=== PATIENT | male | born 1950 | race Hispanic/Latino ===

== ENCOUNTER 2021-09-04 09:50 | Observation (INO) | payer OTHER ==
[2021-09-02 10:18] LABS: APPEARANCE,URINE Clear (CLEAR); BILIRUBIN,URINE Negative (NEGATIVE); COLOR,URINE Yellow (YELLOW); GLUCOSE, URINE (UA) Negative (NEGATIVE); KETONES,URINE Negative (NEGATIVE); LEUKOCYTE ESTERASE ,URINE Trace (NEGATIVE); NITRATE,URINE Negative (NEGATIVE); OCCULT BLOOD,URINE Negative (NEGATIVE); PH,URINE 6.5 (5.0-8.0); PROTEIN,URINE Trace mg/dL (NEGATIVE); UROBILINOGEN,URINE 0.2 mg/dL (0.2-1.0)
[2021-09-02 10:22] LABS: BACTERIA,URINE Rare /HPF (None Seen); RBC,URINE 0-1 /HPF (0-1); SQUAMOUS EPITHELIAL CELL,UR Rare /HPF (0-2); WBC,URINE 0-1 /HPF (0-1)
[2021-09-02 10:24] LABS: BASOPHILS % (AUTO) 0.6 % (0.0-5.0); EOSINOPHILS % (AUTO) 1.7 % (0.0-8.0); HEMATOCRIT 46.3 % (42-54); LYMPHOCYTES % (AUTO) 25.2 % (21.0-51.0); MEAN CORPUSCULAR HEMOGLOBIN 30.5 pg (27.0-33.0); MEAN CORPUSCULAR HGB CONC 32.4 g/dL (32.0-36.0); MEAN CORPUSCULAR VOLUME 94.3 fL (79-99); MONOCYTES % (AUTO) 5.9 % (3.0-13.0); NEUTROPHILS % (AUTO) 66.1 % (40.0-77.0); PLATELET COUNT (AUTO) 132 K/uL (130-400); RED BLOOD CELL COUNT(AUTO) 4.91 MIL/uL (4.50-6.20); RED CELL DISTRIBUTION WIDTH 13.3 % (11.0-15.5); WHITE BLOOD COUNT (AUTO) 8.7 K/uL (4.8-10.8)
[2021-09-02 10:41] LABS: INR 0.97 (0.85-1.15); PROTHROMBIN TIME 10.6 SEC (9.6-11.6)
[2021-09-02 10:42] LABS: CREATININE 1.2 mg/dL (0.5-1.5); POTASSIUM 4.2 mmol/L (3.5-5.1)
[~2021-09-04] VITALS: Ht 172.7 cm; Wt 114.3 kg
[2021-09-04] VITALS (20 sets, daily range): BP systolic 110–173; BP diastolic 49–98
[~2021-09-04 09:50] MED LIST: ATOR20TA65 PO; BUDE10.2 IH; CLON0.5T4 PO; DILT120C12 PO; FISH1CAP27 PO; GLIP5TAB11 PO; LISI20TA24 PO; MELO10CA3 PO; MULT-1367 PO; TAMS-1 PO; THEO400T3 PO; TIOT18CA3 IH; TRAM-355 PO; VITA1CAP85 PO
[2021-09-04] MEDS: CEFAZOLIN SODIUM 1 GM VIAL IVP SCH ×4 (10:00→22:46)
[2021-09-04] MEDS ORDERED: 0.9%NACL 1000ML 1,000 ML IV ONE (10:39)
[2021-09-04] MEDS ORDERED: KETOROLAC 15MG/ML VIAL (15MG/ML) ONE (11:08)
[2021-09-04] MEDS ORDERED: CELECOXIB 200 MG CAP ONE (11:08)
[2021-09-04] MEDS ORDERED: ACETAMINOPHEN 500 MG TABLET ONE (11:08)
[2021-09-04] MEDS ORDERED: TRANEXAMIC ACID 1000MG/10ML ONE (11:39)
[2021-09-04] MEDS ORDERED: CEFAZOLIN SODIUM 1 GM VIAL ONE (11:39)
[2021-09-04] MEDS ORDERED: MIDAZOLAM HCL 1 MG/ML 2ML VIAL ONE (12:24)
[2021-09-04] MEDS ORDERED: ROCURONIUM 10MG/1ML SYR 10 MG/ML ML ONE ×2 (12:24→13:49)
[2021-09-04] MEDS ORDERED: PROPOFOL 10 MG/ML 20ML VIAL IV ONE (12:24)
[2021-09-04] MEDS ORDERED: LIDOCAINE PF 100MG/5ML (2%) SYRINGE 5ML ONE (12:24)
[2021-09-04] MEDS ORDERED: SUCCINYLCHOLINE CHLORIDE 20 MG/ML 10 ML VIAL ONE (12:24)
[2021-09-04] MEDS ORDERED: ALBUMIN (HUMAN) 5% 250 ML IV ONE (13:15)
[2021-09-04] MEDS ORDERED: GLYCOPYRROLATE 1 MG/5 ML SYRINGE ONE (13:35)
[2021-09-04] MEDS ORDERED: FENTANYL CITRATE PF 50 MCG/1 ML 2ML VIAL ONE (13:47)
[2021-09-04] MEDS ORDERED: CEFAZOLIN SODIUM 1 GM VIAL IRRIG ONE (13:55)
[2021-09-04] MEDS ORDERED: ALBUTEROL INHALER 90MCG/INH IH ONE (14:58)
[2021-09-04] MEDS ORDERED: ONDANSETRON 4MG INJ ONE (16:24)
[2021-09-04] MEDS ORDERED: NEOSTIGMINE 5MG/5ML SYR IV ONE (16:24)
[2021-09-04] MEDS ORDERED: POTASSIUM CHLORIDE 20MEQ/100ML 100 ML IV PRN (17:00)
[2021-09-04] MEDS ORDERED: LIDOCAINE HCL-MPF 1% 2ML VIAL IV PRN (17:00)
[2021-09-04] MEDS ORDERED: TRAMADOL HCL 50 MG TABLET PO PRN (17:00)
[2021-09-04] MEDS ORDERED: OXYCODONE HCL 5 MG TAB PO PRN (17:00)
[2021-09-04] MEDS ORDERED: DiphenhydrAMINE HCL 50 MG/ML VIAL IVP PRN (17:00)
[2021-09-04] MEDS ORDERED: POTASSIUM CHLORIDE 10% ELIXIR 20 MEQ/15 ML UDCUP PO PRN (17:00)
[2021-09-04] MEDS ORDERED: ONDANSETRON 4MG INJ IVP PRN (17:00)
[2021-09-04] MEDS ORDERED: FERROUS FUMARATE 324 MG TABLET PO PRN (17:00)
[2021-09-04] MEDS ORDERED: KCL 20 MEQ ERTAB PO PRN (17:00)
[2021-09-04] MEDS ORDERED: KETOROLAC 15MG/ML VIAL (15MG/ML) IV PRN (17:00)
[2021-09-04] MEDS ORDERED: CALCIUM CARB 500MG PO PRN (17:00)
[2021-09-04] MEDS ORDERED: MEPERIDINE-PF 25 MG/ML SYG ONE (17:49)
[2021-09-04] MEDS: ASPIRIN 81 MG EC TAB PO SCH (20:54)
[2021-09-04] MEDS: CELECOXIB 200 MG CAP PO SCH (20:54)
[2021-09-04] MEDS: FAMOTIDINE 20MG TAB PO SCH (20:55)
[2021-09-04] MEDS: PREGABALIN 25 MG CAP PO SCH (20:56)
[2021-09-04] MEDS: INSULIN HUMULIN R 100 UNIT/ML 3ML SQ SCH (21:00)
[2021-09-04] MEDS: ACETAMINOPHEN 500 MG TABLET PO SCH (21:01)
[2021-09-04] MEDS ORDERED: PROAIR IH PRN (22:00)
[2021-09-04] MEDS: CLONAZEPAM 0.5 MG TABLET PO SCH (22:46)
[2021-09-04] MEDS: LISINOPRIL 20 MG TABLET PO SCH (22:47)
[2021-09-04] MEDS: THEOPHYLLINE ANHYDROUS 100 MG CAP.ER.24H PO SCH (23:00)
[2021-09-05] VITALS (7 sets, daily range): BP systolic 119–149; BP diastolic 57–98
[2021-09-05 03:56] LABS: MEAN CORPUSCULAR HEMOGLOBIN 30.5 pg (27.0-33.0); MEAN CORPUSCULAR HGB CONC 32.1 g/dL (32.0-36.0); MEAN CORPUSCULAR VOLUME 94.8 fL (79-99); RED BLOOD CELL COUNT(AUTO) 3.48 MIL/uL (4.50-6.20); RED CELL DISTRIBUTION WIDTH 13.7 % (11.0-15.5); WHITE BLOOD COUNT (AUTO) 12.8 K/uL (4.8-10.8)
[2021-09-05 04:12] LABS: CREATININE 1.5 mg/dL (0.5-1.5); POTASSIUM 4.9 mmol/L (3.5-5.1)
[2021-09-05] MEDS: CEFAZOLIN SODIUM 1 GM VIAL IVP SCH (04:50)
[2021-09-05] MEDS: 0.9%NACL 1000ML 1,000 ML IV SCH ×2 (04:51→13:00)
[2021-09-05] MEDS: ACETAMINOPHEN 500 MG TABLET PO SCH ×3 (04:54→17:19)
[2021-09-05] MEDS: OXYCODONE HCL 5 MG TAB PO PRN ×2 (04:55→12:12)
[2021-09-05] MEDS: INSULIN HUMULIN R 100 UNIT/ML 3ML SQ SCH ×4 (07:30→21:00)
[2021-09-05] MEDS ORDERED: TAMSULOSIN HCL 0.4 MG CAP.ER.24H PO SCH (09:00)
[2021-09-05] MEDS ORDERED: NON-FORMULARY MEDICATION 1 EACH (Diltiazem HCl (Diltiazem ER) 120 MG) PO SCH (09:00)
[2021-09-05] MEDS: SPIRIVA IH SCH (09:00)
[2021-09-05] MEDS: SYMBICORT 160-4.5 MCG INHALER IH SCH ×2 (09:00→21:00)
[2021-09-05] MEDS: LISINOPRIL 20 MG TABLET PO SCH ×2 (10:11→22:14)
[2021-09-05] MEDS: ATORVASTATIN 20 MG TABLET PO SCH (10:11)
[2021-09-05] MEDS: PREGABALIN 25 MG CAP PO SCH ×2 (10:11→22:13)
[2021-09-05] MEDS: ASPIRIN 81 MG EC TAB PO SCH ×2 (10:11→22:13)
[2021-09-05] MEDS: GLIPIZIDE 5 MG TABLET PO SCH ×2 (10:12→17:09)
[2021-09-05] MEDS: FAMOTIDINE 20MG TAB PO SCH ×2 (10:12→22:14)
[2021-09-05] MEDS: DILTIAZEM 120MG SR CAP PO SCH (10:12)
[2021-09-05] MEDS: CELECOXIB 200 MG CAP PO SCH ×2 (10:12→22:13)
[2021-09-05] MEDS: TAMSULOSIN HCL 0.4 MG CAP.ER.24H PO SCH (10:13)
[2021-09-05] MEDS: POLYETHYLENE GLYCOL 3350 17 GM POWD.PACK PO SCH (10:13)
[2021-09-05] MEDS: CLONAZEPAM 0.5 MG TABLET PO SCH (22:13)
[2021-09-05] MEDS: THEOPHYLLINE ANHYDROUS 100 MG CAP.ER.24H PO SCH (22:14)
[2021-09-06 00:05] VITALS: BP 112/56
[2021-09-06 04:40] VITALS: BP 108/54
[2021-09-06] MEDS: ACETAMINOPHEN 500 MG TABLET PO SCH ×3 (05:07→20:34)
[2021-09-06] MEDS: OXYCODONE HCL 5 MG TAB PO PRN (05:08)
[2021-09-06] MEDS: INSULIN HUMULIN R 100 UNIT/ML 3ML SQ SCH ×4 (07:02→21:25)
[2021-09-06 08:00] VITALS: BP 101/50
[2021-09-06] MEDS: DILTIAZEM 120MG SR CAP PO SCH (09:00)
[2021-09-06] MEDS: LISINOPRIL 20 MG TABLET PO SCH ×2 (09:00→21:00)
[2021-09-06] MEDS: SPIRIVA IH SCH (09:00)
[2021-09-06] MEDS: SYMBICORT 160-4.5 MCG INHALER IH SCH ×2 (09:00→20:40)
[2021-09-06] MEDS: GLIPIZIDE 5 MG TABLET PO SCH ×2 (09:28→17:19)
[2021-09-06] MEDS: ASPIRIN 81 MG EC TAB PO SCH ×2 (09:28→20:30)
[2021-09-06] MEDS: POLYETHYLENE GLYCOL 3350 17 GM POWD.PACK PO SCH (09:28)
[2021-09-06] MEDS: PREGABALIN 25 MG CAP PO SCH ×2 (09:29→20:30)
[2021-09-06] MEDS: CELECOXIB 200 MG CAP PO SCH ×2 (09:29→20:30)
[2021-09-06] MEDS: TAMSULOSIN HCL 0.4 MG CAP.ER.24H PO SCH (09:29)
[2021-09-06] MEDS: FAMOTIDINE 20MG TAB PO SCH ×2 (09:29→20:30)
[2021-09-06] MEDS: ATORVASTATIN 20 MG TABLET PO SCH (09:29)
[2021-09-06 12:00] VITALS: BP 107/38
[2021-09-06 16:00] VITALS: BP 99/45
[2021-09-06] MEDS: THEOPHYLLINE ANHYDROUS 100 MG CAP.ER.24H PO SCH (20:29)
[2021-09-06] MEDS: CLONAZEPAM 0.5 MG TABLET PO SCH (20:30)
[2021-09-07] VITALS: BP 116/57
[2021-09-07] MEDS: OXYCODONE HCL 5 MG TAB PO PRN (02:08)
[2021-09-07 04:00] VITALS: BP 111/65
[2021-09-07] MEDS: ACETAMINOPHEN 500 MG TABLET PO SCH ×2 (06:06→13:26)
[2021-09-07] MEDS: INSULIN HUMULIN R 100 UNIT/ML 3ML SQ SCH ×2 (06:09→13:24)
[2021-09-07 07:09] VITALS: BP 118/57
[2021-09-07] MEDS: SPIRIVA IH SCH (09:00)
[2021-09-07] MEDS: LISINOPRIL 20 MG TABLET PO SCH (09:00)
[2021-09-07] MEDS: DILTIAZEM 120MG SR CAP PO SCH (09:00)
[2021-09-07] MEDS: SYMBICORT 160-4.5 MCG INHALER IH SCH (09:00)
[2021-09-07] MEDS: PREGABALIN 25 MG CAP PO SCH ×2 (09:00→09:24)
[2021-09-07] MEDS: ASPIRIN 81 MG EC TAB PO SCH (09:24)
[2021-09-07] MEDS: TAMSULOSIN HCL 0.4 MG CAP.ER.24H PO SCH (09:24)
[2021-09-07] MEDS: POLYETHYLENE GLYCOL 3350 17 GM POWD.PACK PO SCH (09:24)
[2021-09-07] MEDS: CELECOXIB 200 MG CAP PO SCH (09:24)
[2021-09-07] MEDS: FAMOTIDINE 20MG TAB PO SCH (09:25)
[2021-09-07] MEDS: GLIPIZIDE 5 MG TABLET PO SCH ×2 (09:25→17:50)
[2021-09-07] MEDS: ATORVASTATIN 20 MG TABLET PO SCH (09:25)
[2021-09-07 12:00] VITALS: BP 116/66
[2021-09-07] MEDS ORDERED: TRAM-355 PO (12:43)
[2021-09-07] MEDS ORDERED: APIX2.5T PO (12:43)
[2021-09-07] MEDS ORDERED: BISACODYL 10 MG SUPP.RECT RC PRN (17:00)
== END 2021-09-07 18:45 ==
LOC: DAH 09:50 → DAHIP 16:40 → 4AH 19:07
PROVIDERS: ADMIT Orthopaedic Surgery; ATTEND Orthopaedic Surgery
DX: M16.12 Unilateral primary osteoarthritis, left hip (principal); Z20.822 Contact with and (suspected) exposure to COVID-19; D62 Acute posthemorrhagic anemia; E11.9 Type 2 diabetes mellitus without complications; E78.5 Hyperlipidemia, unspecified; J44.9 Chronic obstructive pulmonary disease, unspecified; I10 Essential (primary) hypertension; G47.30 Sleep apnea, unspecified; Z90.49 Acquired absence of other specified parts of digestive tract; Z87.891 Personal history of nicotine dependence; Z79.899 Other long term (current) drug therapy; Z99.81 Dependence on supplemental oxygen
CPT/HCPCS: 27130; 36415 ×2; 64447; 73503; 76942; 80048 ×2; 81001; 82948 ×13; 85025; 85027; 85610; 87088; 87635; 87641; 88304; 88311; 93005; 94660 ×3; 96374; 96375; 96376; 97039 ×5; 97116 ×3; 97161; 97530; A4213; A4215; A4221; A4222; A4223 ×2; A4649 ×5; A4663; A5120; A9272; C1713; C1776; C9803; G0378 ×72; J0330; J0690 ×5; J1815 ×8; J1885 ×3; J2001; J2175; J2250; J2405; J2704; J2710; J3010; J3490 ×2; J7030 ×2; J7120; P9045

== ENCOUNTER → 2022-08-26 | Outpatient (CLI) | payer OTHER ==
[~2022-08-26] MED LIST changes: +APIX2.5T PO; -MELO10CA3 PO
== END | disposition home or self-care (01) ==
LOC: RAH 09:08
PROVIDERS: ATTEND Physical Medicine & Rehabilitation
DX: M47.812 Spondylosis without myelopathy or radiculopathy, cervical region (principal); M16.12 Unilateral primary osteoarthritis, left hip; M25.552 Pain in left hip; M54.2 Cervicalgia
CPT/HCPCS: 72050; 73502